=== PATIENT | male | born 1950 | race Caucasian/White ===

== ENCOUNTER 2017-03-01 11:58 | Emergency (ER) | payer MEDICARE ==
[2017-03-01] MEDS ORDERED: Sodium Chloride 0.9% 1000 ML 1,000 ML ONE ×3 (12:05→13:32)
[2017-03-01] MEDS ORDERED: Ativan 2 MG/1 ML VIAL ONE ×2 (12:05→12:27)
[2017-03-01] MEDS ORDERED: Sodium Chloride 0.9% 1000 ML 1,000 ML IV STA (12:06)
[2017-03-01 12:07] LABS: Lactic Acid 14.3 (0.4-2.0); VBG BASE EXCESS -12.8 (-2.0-2.0); VBG CARBOXYHEMOGLOBIN 2.4 % T HGB (0.0-6.9); VBG HCO3- 13.3 meq/L (22-28); VBG HEMOGLOBIN 14.8; VBG O2 SATURATION 92.2 (95-100)
[2017-03-01] MEDS ORDERED: Ativan 2 MG/1 ML VIAL IV ONE ×2 (12:07→12:30)
[2017-03-01 12:08] LABS: Glucose,Critical Care 657 (70-110); VBG pH 7.24 (7.32-7.42)
[2017-03-01 12:13] VITALS: O2SAT 98
[2017-03-01 12:15] LABS: Mean Cell Volume 85.3 fl (78-100); Mean Corpuscular Hemoglobin 29.2 pg (26-32); Mean Platelet Volume 10.7 fl (6-9.5); Platelet Count 422 K/mm3 (150-450); Red Blood Count 4.89 M/mm3 (4.1-5.6); White Blood Count 16.1 K/mm3 (4.0-10.5)
[2017-03-01] MEDS ORDERED: ROCEPHIN 1 Gm-D5w 50 ml Bag** 1 G/50 ML IVPB IV STA (12:15)
[2017-03-01] MEDS ORDERED: ROCEPHIN 1 Gm-D5w 50 ml Bag** 1 G/50 ML IVPB IV ONE (12:19)
[2017-03-01] MEDS ORDERED: Keppra 500 MG/5 ML*** 1,000 MG in D5w 100ML Mini Bag 100 ML 100 ML IV ONE (12:25)
[2017-03-01 12:26] LABS: ADD URINE CULTURE? NO (NO); Bilirubin NEGATIVE (NEGATIVE); Blood NEGATIVE Ery/ul (0-5); COMPLETE URINE MICROSCOPIC? NO; Collection Type CATH; Glucose 1000 mg/dL (NEGATIVE); Leukocyte Esterase NEGATIVE (NEGATIVE)
[2017-03-01 12:27] LABS: INR 0.99 (0.8-3.0)
[2017-03-01 12:29] LABS: PTT 28.6 SECONDS (24.1-36.1)
[2017-03-01 12:34] LABS: ALBUMIN 3.8 g/dL (3.4-5.0); ANION GAP 29.9 MEQ/L (5-15); BILIRUBIN,TOTAL 0.6 mg/dL (0.2-1.0); Potassium 3.9 mEq/L (3.5-5.1); Total Protein 8.2 gm/dL (6.4-8.2)
[2017-03-01 12:43] LABS: MAGNESIUM 1.9 mg/dL (1.8-2.4)
[2017-03-01 12:45] LABS: ETHYL ALCOHOL < 0.010 % (0.00-0.01)
--- NOTE | 2017-03-01 12:47 | XRAY ---
Indication: Hyperglycemia. Seizures. Comparison: None Portable chest underinflated and clear. Heart and mediastinal structures within normal limits. Bony thorax intact. Impression: Nonacute underinflated chest.
--- NOTE | 2017-03-01 12:49 | XRAY ---
Indication: Hyperglycemia. Seizures. Multiple contiguous axial images obtained through the head without contrast. Comparison: None Several images mainly through the base of the brain slightly degraded by motion artifact. Age-appropriate global atrophy. No acute intracranial hemorrhage, abnormal extra axial fluid collection, or mass effect. Fourth ventricle is midline without hydrocephalus. Bony calvarium intact. Visualized paranasal sinuses and mastoid air cells clear. Impression: Minimal motion artifact. No acute intracranial abnormalities. CT DI 59.30
[2017-03-01] MEDS: Sodium Chloride 0.9% 1000 ML 1,000 ML IV SCH ×3 (12:51→13:24)
[2017-03-01 12:59] LABS: Carbon Dioxide 13.8 mEq/L (21-32)
[2017-03-01 13:00] LABS: Platelet Estimate NORMAL (NORMAL); Total Cells Counted 100; Toxic Granulation 1+
--- NOTE | 2017-03-01 13:00 | ERPHSYRPT ---
- History of Present Illness Time Seen by Provider: 03/01/17 12:06 Source: patient, family (brother in law) Patient Subjective Stated Complaint: EMS STAFF CALLED TO [facility] [place] FOR PT HAVING A SEIZURE-UPON ARRIVAL PT SEMI CONSCIOUS-ABLE TO ANSWER QUESTIONS-DIAPHORETIC- DENIES PAIN Triage Nursing Assessment: NO POST ICTAL STATE NOTED-PT ANSWERING QUESTIONS CORRECTLY-NO SIGNS OF QNAPZVSSI-CLAOLSHTKSG-IL HAD SEIZURE ACTIVITY DURING TRIAGE Physician History: CC: confused Hx: 67 y/o patient of Dr Kennedy with hx of HTN and DM. He has not felt well for 2 months, worse in past 2 weeks. No eating much. Lives alone. A friend checked on him today and he seemed to be a little confused and sugar was hi. En route to the hospital his brother in law noted seizure. He has no hx of seizures in the past. He was brought into ER alert but a little confused. Pt reports allergy to PCN- rash. He is oriented mostly. Denies pain. No vomiting or fever. Severity: severe Allergies/Adverse Reactions: penicillin G Allergy (Intermediate, Verified 03/01/17 12:26) Hives Home Medications: Amlodipine Besylate 10 mg [Norvasc 10 MG] 10 mg PO DAILY 03/01/17 [History] Aspirin 81 gm Chew [Baby Aspirin 81 mg Chew] 81 mg PO DAILY 03/01/17 [ History] Gemfibrozil 600 mg [Lopid 600 mg] 600 mg PO BID 03/01/17 [History] Levothyroxine Sodium 50 Mcg [Synthroid 50 Mcg] 50 mcg PO DAILY 03/01/17 [ History] Lisinopril 20 mg [Zestril 20 MG] 40 mg PO DAILY 03/01/17 [History] Metformin HCl [Glucophage] 1,000 mg PO BID 03/01/17 [History] - Review of Systems Constitutional: Malaise, Weakness, No Fever Eyes: No Symptoms Ears, Nose, & Throat: No Symptoms Respiratory: No Cough, No Dyspnea Cardiac: No Chest Pain Abdominal/Gastrointestinal: No Nausea, No Vomiting, No Diarrhea Skin: No Rash Neurological: Seizure (GIVER), No Focal Weakness, No Headache, No Parasthesia All Other Systems: Reviewed and Negative - Past Medical History Pertinent Past Medical History: Yes Cardiac History: High Cholesterol, Hypertension Endocrine Medical History: Diabetes Type II, Hypothyroidism - Social History Smoking Status: Former smoker Patient Lives Alone: Yes (lives alone) - Nursing Vital Signs Nursing Vital Signs: Initial Vital Signs Pulse Rate 111 H 03/01/17 11:59 Respiratory Rate 20 03/01/17 11:59 Blood Pressure 166/70 03/01/17 11:59 O2 Sat by Pulse Oximetry 96 03/01/17 11:59 Pain Scale Pain Intensity 0 - Physical Exam General Appearance: alert (mildly confused) Eye Exam: PERRL/EOMI Ears, Nose, Throat Exam: dry mucous membranes Neck Exam: non-tender, supple Respiratory Exam: normal breath sounds Cardiovascular Exam: regular rate/rhythm Gastrointestinal/Abdomen Exam: soft, No tenderness, No distention, No mass, No guarding Male Genitalia Exam: normal genitalia Extremity Exam: normal inspection, normal range of motion Neurologic Exam: alert, No motor deficits Skin Exam: warm, diaphoresis SpO2 Interpretation: normal SpO2: 98 Oxygen Delivery: Non-rebreather - Course Nursing assessment & vital signs reviewed: Yes EKG Interpreted by Me: RATE (98), Sinus Rhythm, NORMAL AXIS, NORMAL INTERVALS ( QTc 450), Non-specific ST Changes - Radiology Exams cxr X-ray Interpretation: Teleradiologist Report, Negative (underinflated) - CT Exams head CT Interpretation: Negative, Tele-radiologist Report Ordered Tests: Active Orders 24 hr Category Date Time Status Airborne Operations STAT Care 03/01/17 12:07 Active Catheter-Tiverton Suarez STAT Care 03/01/17 12:06 Active EKG-ER Only STAT Care 03/01/17 12:06 Active IV Insertion STAT Care 03/01/17 12:06 Active NPO (ED) STAT Care 03/01/17 12:06 Active Oxygen-ED Only NON-REBREATHER 100% Care 03/01/17 12:08 Active Pulse Oximetry (ED) STAT Care 03/01/17 12:13 Active Rectal Temperature STAT Care 03/01/17 12:07 Active Seizure Precautions -SCCHED STAT Care 03/01/17 12:07 Active CHEST 1 VIEW (PORTABLE) Stat Exams 03/01/17 12:06 Completed HEAD WITHOUT CONTRAST [CT] Stat Exams 03/01/17 12:07 Completed ARTERIAL BLOOD GASES Stat Lab 03/01/17 Ordered BLOOD CULTURE Stat Lab 03/01/17 11:55 Received CBC W DIFF Stat Lab 03/01/17 12:00 Completed CK-Creatinine Phosphokinase Stat Lab 03/01/17 12:00 Completed CMP Stat Lab 03/01/17 12:00 Completed ETHYL ALCOHOL Stat Lab 03/01/17 12:00 Completed Glucose,Critical Care Stat Lab 03/01/17 11:59 Results Glucose,Critical Care Urgent Lab 03/01/17 Ordered Lactic Acid Stat Lab 03/01/17 Ordered Lactic Acid Stat Lab 03/01/17 11:59 Results MAGNESIUM Stat Lab 03/01/17 12:00 Completed Manual Differential NC Stat Lab 03/01/17 12:00 Completed PROTIME WITH INR Stat Lab 03/01/17 12:14 Completed PTT Stat Lab 03/01/17 12:14 Completed TROPONIN Q3H Lab 03/01/17 12:00 Completed TROPONIN Q3H Lab 03/01/17 15:15 Ordered TROPONIN Q3H Lab 03/01/17 18:15 Ordered TROPONIN Q3H Lab 03/01/17 21:15 Ordered TROPONIN Q3H Lab 03/02/17 00:15 Ordered UA W/RFX UR CULTURE Stat Lab 03/01/17 12:06 Completed Urine Triage Profile Stat Lab 03/01/17 12:06 Completed VBG [VENOUS BLOOD GAS] Stat Lab 03/01/17 11:59 Results Medication Summary Generic Name Dose Route Start Last Admin Trade Name Freq PRN Reason Stop Dose Admin Sodium Chloride 1,000 mls @ 999 mls/hr 03/01/17 12:15 03/01/17 12:56 Sodium Chloride 0.9% 1000 Ml IV 03/01/17 16:15 999 mls/hr .Q1H1M MICHELLE Administration Insulin Human Regular 100 101 mls @ 5.05 mls/hr 03/01/17 13:15 units/ Sodium Chloride IV 03/31/17 13:14 .Q20H MICHELLE 5 UNITS/HR Discontinued Medications Generic Name Dose Route Start Last Admin Trade Name Freq PRN Reason Stop Dose Admin Sodium Chloride Confirm 03/01/17 12:05 Sodium Chloride 0.9% 1000 Ml Administered 03/01/17 12:06 Dose 1,000 mls @ ud .ROUTE .STK-MED ONE Sodium Chloride 1,000 mls @ 999 mls/hr 03/01/17 12:06 03/01/17 12:13 Sodium Chloride 0.9% 1000 Ml IV 03/01/17 13:06 999 mls/hr .Q1H1M STA Administration Ceftriaxone Sodium/Dextrose 1 g in 50 mls @ 100 mls/hr 03/01/17 12:15 12:50 Rocephin 1 Gm-D5w 50 Ml Bag IV 03/01/17 12:44 100 mls/hr STAT STA Administration Ceftriaxone Sodium/Dextrose Confirm 03/01/17 12:19 Rocephin 1 Gm-D5w 50 Ml Bag Administered 03/01/17 12:20 Dose 1 g in 50 mls @ ud IV .STK-MED ONE Levetiracetam 1,000 mg/ 110 mls @ 400 mls/hr 03/01/17 12:25 03/01/17 12:34 Dextrose IV 03/01/17 12:41 400 mls/hr STAT ONE Administration Lorazepam Confirm 03/01/17 12:05 Ativan 2 Mg/1 Ml Vial Administered 03/01/17 12:06 Dose 2 mg .ROUTE .STK-MED ONE Lorazepam 1 mg 03/01/17 12:07 03/01/17 12:05 Ativan 2 Mg/1 Ml Vial IV 03/01/17 12:08 1 mg STAT ONE Administration Lorazepam 1 mg 03/01/17 12:30 03/01/17 12:30 Ativan 2 Mg/1 Ml Vial IV 03/01/17 12:31 1 mg STAT ONE Administration Lorazepam Confirm 03/01/17 12:27 Ativan 2 Mg/1 Ml Vial Administered 03/01/17 12:28 Dose 2 mg .ROUTE .STK-MED ONE Lab/Rad Data: Laboratory Result Diagrams 03/01/17 12:00 03/01/17 12:00 Laboratory Results 03/01/17 03/01/17 03/01/17 Range/Units 12:14 12:06 12:06 WBC (4.0-10.5) K/mm3 RBC (4.1-5.6) M/mm3 Hgb (12.5-18.0) gm/dl Hct (42-50) % MCV (78-100) fl MCH (26-32) pg MCHC (32-36) g/dl RDW (11.5-14.0) % Plt Count (150-450) K/mm3 MPV (6-9.5) fl Segmented Neutrophils (36.-66.) % Lymphocytes (Manual) (24-44) % Monocytes (Manual) (0.0-12.0) % Differential Comment Toxic Granulation Platelet Estimate (NORMAL) INR 0.99 (0.8-3.0) APTT 28.6 (24.1-36.1) SECONDS VBG pH (7.32-7.42) VBG pCO2 at Pat Temp (42-55) mm/Hg VBG pO2 at Pat Temp (25-40) mm/Hg VBG HCO3 (22-28) meq/L VBG O2 Sat ([place]) (95-100) VBG Base Excess (-2.0-2.0) VBG Hemoglobin VBG Carboxyhemoglobin (0.0-6.9) % T HGB POC Potassium (3.5-5.1) Glucose (70-110) Sodium (136-145) mEq/L Potassium (3.5-5.1) mEq/L Chloride (98-107) mEq/L Carbon Dioxide (21-32) mEq/L Anion Gap (5-15) MEQ/L BUN (9-20) mg/dL Creatinine (0.55-1.30) mg/dl Estimated GFR ML/MIN Lactic Acid (0.4-2.0) Calcium (8.5-10.1) mg/dL Magnesium (1.8-2.4) mg/dL Total Bilirubin (0.2-1.0) mg/dL AST (15-37) U/L ALT (12-78) U/L Alkaline Phosphatase (46-116) U/L Creatine Kinase (39-308) U/L Troponin I (0.000-0.056) ng/ml Serum Total Protein (6.4-8.2) gm/dL Albumin (3.4-5.0) g/dL Ur Collection Type CATH Urine Color YELLOW (YELLOW) Urine Appearance CLEAR (CLEAR) Urine pH 5.0 (5-6) Ur Specific [place] 1.005 (1.005-1.025) Urine Protein NEGATIVE (Negative) Urine Ketones NEGATIVE (NEGATIVE) Urine Blood NEGATIVE (0-5) [place]/ul Urine Nitrite NEGATIVE (NEGATIVE) Urine Bilirubin NEGATIVE (NEGATIVE) Urine Urobilinogen NORMAL (0-1) mg/dL Ur Leukocyte Esterase NEGATIVE (NEGATIVE) Urine Glucose 1000 (NEGATIVE) mg/dL Urine Opiates Level NEG. (NEGATIVE) Ur Methadone NEG. (NEGATIVE) Urine Barbiturates NEG. (NEGATIVE) Ur Phencyclidine (PCP) NEG. (NEGATIVE) Urine Amphetamine NEG. (NEGATIVE) U Benzodiazepine Level NEG. (NEGATIVE) Urine Cocaine NEG. (NEGATIVE) Urine Marijuana (THC) NEG. (NEGATIVE) Ethyl Alcohol (0.00-0.01) % Specimen Received 03/01/17 1210 03/01/17 03/01/17 03/01/17 Range/Units 12:00 12:00 12:00 WBC (4.0-10.5) K/mm3 RBC (4.1-5.6) M/mm3 Hgb (12.5-18.0) gm/dl Hct (42-50) % MCV (78-100) fl MCH (26-32) pg MCHC (32-36) g/dl RDW (11.5-14.0) % Plt Count (150-450) K/mm3 MPV (6-9.5) fl Segmented Neutrophils (36.-66.) % Lymphocytes (Manual) (24-44) % Monocytes (Manual) (0.0-12.0) % Differential Comment Toxic Granulation Platelet Estimate (NORMAL) INR (0.8-3.0) APTT (24.1-36.1) SECONDS VBG pH (7.32-7.42) VBG pCO2 at Pat Temp (42-55) mm/Hg VBG pO2 at Pat Temp (25-40) mm/Hg VBG HCO3 (22-28) meq/L VBG O2 Sat ([place]) (95-100) VBG Base Excess (-2.0-2.0) VBG Hemoglobin VBG Carboxyhemoglobin (0.0-6.9) % T HGB POC Potassium (3.5-5.1) Glucose 629 H* (70-110) Sodium 131 L (136-145) mEq/L Potassium 3.9 (3.5-5.1) mEq/L Chloride 91 L (98-107) mEq/L Carbon Dioxide 13.8 L* (21-32) mEq/L Anion Gap 29.9 H (5-15) MEQ/L BUN 25 H (9-20) mg/dL Creatinine 1.98 H (0.55-1.30) mg/dl Estimated GFR 36 ML/MIN Lactic Acid (0.4-2.0) Calcium 9.5 (8.5-10.1) mg/dL Magnesium 1.9 (1.8-2.4) mg/dL Total Bilirubin 0.60 (0.2-1.0) mg/dL AST 40 H (15-37) U/L ALT 76 (12-78) U/L Alkaline Phosphatase 132 H (46-116) U/L Creatine Kinase 141 (39-308) U/L Troponin I < 0.017 (0.000-0.056) ng/ml Serum Total Protein 8.2 (6.4-8.2) gm/dL Albumin 3.8 (3.4-5.0) g/dL Ur Collection Type Urine Color (YELLOW) Urine Appearance (CLEAR) Urine pH (5-6) Ur Specific [place] (1.005-1.025) Urine Protein (Negative) Urine Ketones (NEGATIVE) Urine Blood (0-5) [place]/ul Urine Nitrite (NEGATIVE) Urine Bilirubin (NEGATIVE) Urine Urobilinogen (0-1) mg/dL Ur Leukocyte Esterase (NEGATIVE) Urine Glucose (NEGATIVE) mg/dL Urine Opiates Level (NEGATIVE) Ur Methadone (NEGATIVE) Urine Barbiturates (NEGATIVE) Ur Phencyclidine (PCP) (NEGATIVE) Urine Amphetamine (NEGATIVE) U Benzodiazepine Level (NEGATIVE) Urine Cocaine (NEGATIVE) Urine Marijuana (THC) (NEGATIVE) Ethyl Alcohol < 0.010 (0.00-0.01) % Specimen Received 03/01/17 03/01/17 Range/Units 12:00 11:59 WBC 16.1 H (4.0-10.5) K/mm3 RBC 4.89 (4.1-5.6) M/mm3 Hgb 14.3 (12.5-18.0) gm/dl Hct 41.7 L (42-50) % MCV 85.3 (78-100) fl MCH 29.2 (26-32) pg MCHC 34.3 (32-36) g/dl RDW 14.0 (11.5-14.0) % Plt Count 422 (150-450) K/mm3 MPV 10.7 H (6-9.5) fl Segmented Neutrophils 37 (36.-66.) % Lymphocytes (Manual) 60 H (24-44) % Monocytes (Manual) 3 (0.0-12.0) % Differential Comment NORMAL Toxic Granulation 1+ Platelet Estimate NORMAL (NORMAL) INR (0.8-3.0) APTT (24.1-36.1) SECONDS VBG pH 7.24 L* (7.32-7.42) VBG pCO2 at Pat Temp 31 L (42-55) mm/Hg VBG pO2 at Pat Temp 63 H (25-40) mm/Hg VBG HCO3 13.3 L* (22-28) meq/L VBG O2 Sat ([place]) 92.2 L (95-100) VBG Base Excess -12.8 L (-2.0-2.0) VBG Hemoglobin 14.8 VBG Carboxyhemoglobin 2.4 (0.0-6.9) % T HGB POC Potassium 4.0 (3.5-5.1) Glucose 657 H* (70-110) Sodium (136-145) mEq/L Potassium (3.5-5.1) mEq/L Chloride (98-107) mEq/L Carbon Dioxide (21-32) mEq/L Anion Gap (5-15) MEQ/L BUN (9-20) mg/dL Creatinine (0.55-1.30) mg/dl Estimated GFR ML/MIN Lactic Acid 14.3 H (0.4-2.0) Calcium (8.5-10.1) mg/dL Magnesium (1.8-2.4) mg/dL Total Bilirubin (0.2-1.0) mg/dL AST (15-37) U/L ALT (12-78) U/L Alkaline Phosphatase (46-116) U/L Creatine Kinase (39-308) U/L Troponin I (0.000-0.056) ng/ml Serum Total Protein (6.4-8.2) gm/dL Albumin (3.4-5.0) g/dL Ur Collection Type Urine Color (YELLOW) Urine Appearance (CLEAR) Urine pH (5-6) Ur Specific [place] (1.005-1.025) Urine Protein (Negative) Urine Ketones (NEGATIVE) Urine Blood (0-5) [place]/ul Urine Nitrite (NEGATIVE) Urine Bilirubin (NEGATIVE) Urine Urobilinogen (0-1) mg/dL Ur Leukocyte Esterase (NEGATIVE) Urine Glucose (NEGATIVE) mg/dL Urine Opiates Level (NEGATIVE) Ur Methadone (NEGATIVE) Urine Barbiturates (NEGATIVE) Ur Phencyclidine (PCP) (NEGATIVE) Urine Amphetamine (NEGATIVE) U Benzodiazepine Level (NEGATIVE) Urine Cocaine (NEGATIVE) Urine Marijuana (THC) (NEGATIVE) Ethyl Alcohol (0.00-0.01) % Specimen Received - Progress Progress Note: 03/01/17 13:12 Pt had tow more seizure in ER. After returning from CT at 12:42 and he had no movement on left arm, leg and had left facial droop. No injury was reported. He has high blood sugar. No fever. IVF bolus given. Cultures of blood sent. Rocephin given to cover sepsis. Keppra given. Unsure if this is Tood's paralysis post seizure, metabolic induced, or stroke related. CAlled transfer center and spoke to Dr Pereira neurologist who accepts transfer to [facility] ER. Family aware. Condition serious. He is alert, oriented, and follows commands on right. Discussed with : Brent Counseled pt/family regarding: lab results, diagnosis, need for follow-up, rad results - Departure Time of Disposition: 13:17 Departure Disposition: Transfer ([facility] ER) Clinical Impression: Seizure, Hyperglycemia, Shivam's paralysis (postepileptic) Condition: Serious Critical Care Time: Yes Critical Care Time(excluding separately billable procedures): 30-74 minutes Referrals: ZEN KENNEDY [Primary Care Provider] -
[2017-03-01 13:06] LABS: A-aADO2 591; ARTERIAL BLD GAS O2 SATURATION 95.4 % (95-100); ARTERIAL BLOOD GAS BASE EXCESS -10.5 (-2.0-2.0); ARTERIAL BLOOD GAS FIO2 100 %; ARTERIAL BLOOD GAS PO2 78 mmHg (75-100); ARTERIAL BLOOD GAS pH 7.26 (7.35-7.45)
[2017-03-01 13:07] LABS: ALLEN TEST OK? Yes
[2017-03-01] MEDS ORDERED: NOVOLIN R INSULIN (FOR DRIPS)** 100 UNITS in Sodium Chloride 0.9% 100 ML IVPB 100 ML IV SCH (13:15)
[2017-03-01 13:18] VITALS: BP 145/70; PULSE 101
== END 2017-03-01 13:33 | disposition short-term general hospital (02) ==
LOC: ED 11:58
DX: R56.9 Unspecified convulsions (principal); R73.9 Hyperglycemia, unspecified; G83.84 Todd's paralysis (postepileptic); E78.00 Pure hypercholesterolemia, unspecified; I10 Essential (primary) hypertension; E11.9 Type 2 diabetes mellitus without complications; Z79.899 Other long term (current) drug therapy
CPT/HCPCS: 93041; 96374; 96365; 96366; 99285; 36000; 51702; 96360; 96361; 96376; 93005; 87040; 81002; 85610; 85730; 36415; 82550; 83735; 80307; 85025; 80053; 84484; 71010; 70450; 82803; 82375; 36600; 82805; 82947; 94799; 83605; G0481; J0696; J1815; J1953; J2060

== ENCOUNTER 2019-12-13 10:26 | Emergency (ER) | payer MEDICARE, OTHER ==
--- NOTE | 2019-12-13 10:41 | ERPHSYRPT ---
- History of Present Illness Time Seen by Provider: 12/13/19 10:40 Source: patient Exam Limitations: no limitations Physician History: This is a 69-year-old diabetic gentleman with history of hypertension and who is also hypothyroid who presents to the emergency department with complaints of dizziness and a metallic stent. His blood sugar this morning was 375. Patient states that it couple weeks ago patient fell and hit his head and he thinks he had a brief loss of consciousness but he is never had his head evaluated since the injury. Patient denies chest pain and he denies shortness of breath. He denies abdominal pain. His initial blood pressure in the emergency department today was 197/102. Patient denies fever. He denies nausea vomiting diarrhea. Timing/Duration: day(s) (A few days) Severity: mild Associated Symptoms: denies symptoms Allergies/Adverse Reactions: penicillin G Allergy (Intermediate, Verified 12/13/19 10:41) Hives Home Medications: Amlodipine Besylate 10 mg [Norvasc 10 MG] 10 mg PO DAILY 03/01/17 [History] Aspirin 81 gm Chew [Baby Aspirin 81 mg Chew] 81 mg PO DAILY 03/01/17 [History] Gemfibrozil 600 mg [Lopid 600 mg] 600 mg PO BID 03/01/17 [History] Levothyroxine Sodium 50 Mcg [Synthroid 50 Mcg] 50 mcg PO DAILY 03/01/17 [History] Lisinopril 20 mg [Zestril 20 MG] 20 mg PO BID 03/01/17 [History] Metformin HCl [Glucophage] 500 mg PO BID 03/01/17 [History] Metoprolol Succinate 100 mg [Toprol Xl 100 MG] 100 mg DAILY 12/13/19 [History] Travel Risk - International Travel Have you traveled outside of the country in past 3 weeks: No - Coronavirus Screening Are you exhibiting any of the following symptoms?: No Close contact with a COVID-19 positive Pt in past 14-21 Days: No - Review of Systems Constitutional: No Symptoms Eyes: No Symptoms Ears, Nose, & Throat: No Symptoms Respiratory: No Symptoms Cardiac: No Symptoms Abdominal/Gastrointestinal: No Symptoms Genitourinary Symptoms: No Symptoms Musculoskeletal: No Symptoms Skin: No Symptoms Neurological: Dizziness Psychological: No Symptoms Endocrine: No Symptoms Hematologic/Lymphatic: No Symptoms Immunological/Allergic: No Symptoms All Other Systems: Reviewed and Negative - Past Medical History Pertinent Past Medical History: Yes Neurological History: No Pertinent History ENT History: No Pertinent History Cardiac History: High Cholesterol, Hypertension Respiratory History: No Pertinent History Endocrine Medical History: Diabetes Type II, Hypothyroidism Musculoskeletal History: No Pertinent History GI Medical History: No Pertinent History History: No Pertinent History Psycho-Social History: No Pertinent History Male Reproductive Disorders: No Pertinent History - Past Surgical History Neuro Surgical History: No Pertinent History Cardiac: No Pertinent History Respiratory: No Pertinent History Gastrointestinal: No Pertinent History Genitourinary: No Pertinent History Musculoskeletal: No Pertinent History Male Surgical History: No Pertinent History - Social History Smoking Status: Former smoker Patient Lives Alone: Yes (lives alone) - Nursing Vital Signs Nursing Vital Signs: Initial Vital Signs Temperature 98.1 F 12/13/19 10:33 Pulse Rate 108 H 12/13/19 10:33 Respiratory Rate 18 12/13/19 10:33 Blood Pressure 210/102 12/13/19 10:33 O2 Sat by Pulse Oximetry 95 12/13/19 10:33 Pain Scale Pain Intensity 0 - Physical Exam General Appearance: no apparent distress, alert, anxiety Eye Exam: PERRL/EOMI, eyes nml inspection Ears, Nose, Throat Exam: normal ENT inspection, moist mucous membranes Neck Exam: normal inspection, non-tender, supple, full range of motion Respiratory Exam: normal breath sounds, lungs clear, airway intact, No chest tenderness, No respiratory distress Cardiovascular Exam: regular rate/rhythm, normal heart sounds, normal peripheral pulses Gastrointestinal/Abdomen Exam: soft, normal bowel sounds, No tenderness Rectal Exam: not done Back Exam: normal inspection, normal range of motion, No CVA tenderness, No vertebral tenderness Extremity Exam: normal inspection, normal range of motion, pelvis stable Neurologic Exam: alert, oriented x 3, cooperative, hide house supervisor II-XII nml as tested, normal mood/affect, nml cerebellar function, nml station & gait, sensation nml Skin Exam: normal color, warm, dry Lymphatic Exam: No adenopathy SpO2 Interpretation: normal O2 Delivery: Room Air - Course Nursing assessment & vital signs reviewed: Yes Ordered Tests: Active Orders 24 hr Category Date Time Status Mine Motor Engineer STAT Care 12/13/19 10:50 Active IV Insertion STAT Care 12/13/19 10:50 Active HEAD WITHOUT CONTRAST [CT] Stat Exams 12/13/19 11:08 Taken CBC W DIFF Stat Lab 12/13/19 10:45 Completed CMP Stat Lab 12/13/19 10:45 Completed MAGNESIUM Stat Lab 12/13/19 10:45 Completed UA W/RFX UR CULTURE Stat Lab 12/13/19 11:10 Completed Medication Summary Discontinued Medications Generic Name Dose Route Start Last Admin Trade Name Wilian PRN Reason Stop Dose Admin Sodium Chloride 1,000 mls @ 999 mls/hr 12/13/19 10:50 12/13/19 12:33 Sodium Chloride 0.9% 1000 Ml IV 12/13/19 11:50 Infused .Q1H1M STA Infusion Sodium Chloride Confirm 12/13/19 11:13 Sodium Chloride 0.9% 1000 Ml Administered 12/13/19 11:14 Dose 1,000 mls @ ud .ROUTE .STK-MED ONE Insulin Human Regular 4 unit 12/13/19 10:51 12/13/19 11:17 Humulin R IV 12/13/19 10:52 4 unit STAT ONE Administration Insulin Human Regular Confirm 12/13/19 11:18 Humulin R Administered 12/13/19 11:19 Dose 4 unit .ROUTE .STK-MED ONE Metoprolol Tartrate 5 mg 12/13/19 10:50 12/13/19 12:04 Lopressor 5 Mg/5 Ml Injection IV 12/13/19 10:51 5 mg STAT ONE Administration Metoprolol Tartrate Confirm 12/13/19 11:58 Lopressor 5 Mg/5 Ml Injection Administered 12/13/19 11:59 Dose 5 mg IV .STK-MED ONE Metoprolol Tartrate 2.5 mg 12/13/19 12:28 12/13/19 12:43 Lopressor 5 Mg/5 Ml Injection IV 12/13/19 12:29 2.5 mg STAT ONE Administration Metoprolol Tartrate Confirm 12/13/19 12:39 Lopressor 5 Mg/5 Ml Injection Administered 12/13/19 12:40 Dose 5 mg IV .STK-MED ONE Lab/Rad Data: Laboratory Result Diagrams 12/13/19 10:45 12/13/19 10:45 Laboratory Results 12/13/19 12/13/19 12/13/19 Range/Units 11:10 10:45 10:45 WBC 5.7 (4.0-10.5) K/mm3 RBC 4.85 (4.1-5.6) M/mm3 Hgb 14.3 (12.5-18.0) gm/dl Hct 41.1 L (42-50) % MCV 84.7 (78-100) fl MCH 29.5 (26-32) pg MCHC 34.8 (32-36) g/dl RDW 13.4 (11.5-14.0) % Plt Count 249 (150-450) K/mm3 MPV 10.2 (7.5-11.0) fl Gran % 54.3 (36.0-66.0) % Eos # (Auto) 0.05 (0-0.5) Absolute Lymphs (auto) 2.18 (1.0-4.6) Absolute Monos (auto) 0.33 (0.0-1.3) Lymphocytes % 38.3 (24.0-44.0) % Monocytes % 5.8 (0.0-12.0) % Eosinophils % 0.9 (0.00-5.0) % Basophils % 0.7 (0.0-0.4) % Absolute Granulocytes 3.09 (1.4-6.9) Basophils # 0.04 (0-0.4) Sodium 136 L (137-145) mmol/L Potassium 4.2 (3.5-5.1) mmol/L Chloride 104 (98-107) mmol/L Carbon Dioxide 19 L (22-30) mmol/L Anion Gap 16.8 H (5-15) MEQ/L BUN 18 (9-20) mg/dL Creatinine 0.67 (0.66-1.25) mg/dL Estimated GFR > 60.0 ML/MIN Glucose 323 H (74-106) mg/dL Calcium 9.7 (8.4-10.2) mg/dL Magnesium 1.7 (1.6-2.3) mg/dL Total Bilirubin 0.80 (0.2-1.3) mg/dL AST 26 (17-59) U/L ALT 29 (0-50) U/L Alkaline Phosphatase 91 (38-126) U/L Serum Total Protein 8.1 (6.3-8.2) g/dL Albumin 4.7 (3.5-5.0) g/dL Urine Color YELLOW (YELLOW) Urine Appearance CLEAR (CLEAR) Urine pH 5.0 (5-6) Ur Specific [place] 1.024 (1.005-1.025) Urine Protein 100 (Negative) Urine Ketones NEGATIVE (NEGATIVE) Urine Blood NEGATIVE (0-5) [place]/ul Urine Nitrite NEGATIVE (NEGATIVE) Urine Bilirubin NEGATIVE (NEGATIVE) Urine Urobilinogen NEGATIVE (0-1) mg/dL Ur Leukocyte Esterase NEGATIVE (NEGATIVE) Urine WBC (Auto) NONE (0-5) /HPF Urine RBC (Auto) NONE (0-2) /HPF U Epithel Cells (Auto) NONE (FEW) /HPF Urine Bacteria (Auto) NONE (NEGATIVE) /HPF Urine Culture Reflexed NO (NO) Urine Glucose >=500 (NEGATIVE) mg/dL - Progress Progress: improved, re-examined Progress Note: 12/13/19 12:14 CAT scan of the head reveals no acute intracranial abnormality 12/13/19 12:50 Medical decision making: This patient states he is feeling better. Patient does not want to be admitted or transferred into the hospital. His blood sugar is improved after low dose of regular insulin. Patient did take all his blood pressure medications prior to arrival. We will discharge him to home once his blood pressure here in the emergency department is in a reasonable level. His home medications are on board and will be effective and present for several more hours. Patient states his dizziness is improved. He has no chest pain he is not short of breath and he desires to be discharged to home. Counseled pt/family regarding: lab results, diagnosis, need for follow-up, rad results - Departure Departure Disposition: Home Clinical Impression: Hyperglycemia, Hypertensive urgency Condition: Stable Critical Care Time: Yes Critical Care Time(excluding separately billable procedures): Critical 30-74 mins Referrals: ZEN VALLE [Primary Care Provider] - Additional Instructions: Monitor your blood sugar and blood pressure closely. Take your medications as prescribed. Call your primary care physician tomorrow morning to make a rrangements for follow-up appointment.
[2019-12-13] MEDS ORDERED: LOPRESSOR 5 MG/5 ML INJECTION IV ONE ×4 (10:50→12:39)
[2019-12-13] MEDS ORDERED: Sodium Chloride 0.9% 1000 ML 1,000 ML IV STA (10:50)
[2019-12-13] MEDS ORDERED: HUMULIN R IV ONE (10:51)
[2019-12-13 11:04] LABS: Absolute Neutrophil Ct (ANC) 3.09 (1.4-6.9); BASOPHIL % 0.7 % (0.0-0.4); Basophil (Absolute #) 0.04 (0-0.4); Eosinophil % 0.9 % (0.00-5.0); Eosinophil (Absolute #) 0.05 (0-0.5); Hematocrit 41.1 % (42-50); Hemoglobin 14.3 gm/dl (12.5-18.0); Lymphocyte (Absolute #) 2.18 (1.0-4.6); Lymphocytes % 38.3 % (24.0-44.0); Mean Cell Volume 84.7 fl (78-100); Mean Corpuscular Hemoglobin 29.5 pg (26-32); Mean Corpuscular Hgb Concent. 34.8 g/dl (32-36); Mean Platelet Volume 10.2 fl (7.5-11.0); Monocyte (Absolute #) 0.33 (0.0-1.3); Monocytes % 5.8 % (0.0-12.0); Neutrophil % 54.3 % (36.0-66.0); Platelet Count 249 K/mm3 (150-450); Red Blood Count 4.85 M/mm3 (4.1-5.6); Red Cell Distribution Width 13.4 % (11.5-14.0); White Blood Count 5.7 K/mm3 (4.0-10.5)
[2019-12-13] MEDS ORDERED: Sodium Chloride 0.9% 1000 ML 1,000 ML ONE (11:13)
[2019-12-13 11:17] LABS: Appearance CLEAR (CLEAR); Bilirubin NEGATIVE (NEGATIVE); Blood NEGATIVE Ery/ul (0-5); Glucose >=500 mg/dL (NEGATIVE); Ketones NEGATIVE (NEGATIVE); Leukocyte Esterase NEGATIVE (NEGATIVE); Nitrite NEGATIVE (NEGATIVE); Protein,Urine Dip 100 (Negative); Specific Gravity 1.024 (1.005-1.025); Urobilinogen NEGATIVE mg/dL (0-1)
[2019-12-13] MEDS ORDERED: HUMULIN R ONE (11:18)
[2019-12-13 11:21] LABS: ALBUMIN 4.7 g/dL (3.5-5.0); ALKALINE PHOSPHATASE 91 U/L (38-126); ANION GAP 16.8 MEQ/L (5-15); BLOOD UREA NITROGEN 18 mg/dL (9-20); CHLORIDE 104 mmol/L (98-107); Calcium 9.7 mg/dL (8.4-10.2); Carbon Dioxide 19 mmol/L (22-30); Creatinine 1 0.67 mg/dL (0.66-1.25); Glucose 323 mg/dL (74-106); MAGNESIUM 1.7 mg/dL (1.6-2.3); Potassium 4.2 mmol/L (3.5-5.1); SGOT/AST 26 U/L (17-59); SGPT/ALT 29 U/L (0-50); SODIUM 136 mmol/L (137-145); Total Protein 8.1 g/dL (6.3-8.2)
[2019-12-13 13:04] VITALS: BP 156/100; PULSE 82; O2SAT 96
--- NOTE | 2019-12-13 20:00 | XRAY ---
Indication: Dizziness. High blood pressure and high sugar levels. Status post fall 1 week ago. Multiple contiguous axial images obtained through the head without contrast. Comparison: March 01, 2017. Stable age-appropriate global atrophy. Again no acute intracranial hemorrhage, abnormal extra-axial fluid collection, or mass effect. Fourth ventricle is midline without hydrocephalus. Pate-white matter differentiation preserved. Bony calvarium intact. Visualized paranasal sinuses and mastoid air cells are clear. Impression: Continued negative CT head without contrast exam. Comment: Preliminary interpretation was made by [facility]. No critical discrepancy.
== END 2019-12-13 13:13 | disposition home or self-care (01) ==
LOC: ED 10:26
DX: E11.65 Type 2 diabetes mellitus with hyperglycemia (principal); I16.0 Hypertensive urgency; E03.9 Hypothyroidism, unspecified; R42 Dizziness and giddiness; E78.00 Pure hypercholesterolemia, unspecified
CPT/HCPCS: 36415; 70450; 80053; 81001; 82962; 83735; 85025; 93041; 96360; 96374; 96375; 96376; 99284; 99291; J1815

== ENCOUNTER 2021-07-31 14:42 | Emergency (ER) | payer MEDICARE, OTHER ==
[2021-07-31 14:59] VITALS: O2SAT 96
[2021-07-31] MEDS ORDERED: Sodium Chloride 0.9% 1000 ML 1,000 ML IV SCH (15:15)
[2021-07-31 15:26] LABS: Absolute Neutrophil Ct (ANC) 5.17 (1.4-6.9); Basophil (Absolute #) 0.03 (0-0.4); Eosinophil % 1.7 % (0.00-5.0); Eosinophil (Absolute #) 0.15 (0-0.5); Hematocrit 43.2 % (42-50); Hemoglobin 14.8 gm/dl (12.5-18.0); Lymphocyte (Absolute #) 2.84 (1.0-4.6); Lymphocytes % 32.2 % (24.0-44.0); Mean Cell Volume 82.9 fl (78-100); Mean Corpuscular Hemoglobin 28.4 pg (26-32); Mean Corpuscular Hgb Concent. 34.3 g/dl (32-36); Mean Platelet Volume 9.8 fl (7.5-11.0); Monocyte (Absolute #) 0.63 (0.0-1.3); Monocytes % 7.1 % (0.0-12.0); Neutrophil % 58.7 % (36.0-66.0); Platelet Count 221 K/mm3 (150-450); Red Blood Count 5.21 M/mm3 (4.1-5.6); Red Cell Distribution Width 13.7 % (11.5-14.0); White Blood Count 8.8 K/mm3 (4.0-10.5)
[2021-07-31] MEDS ORDERED: Sodium Chloride 0.9% 1000 ML 1,000 ML ONE (15:52)
--- NOTE | 2021-07-31 16:07 | ERPHSYRPT ---
- History of Present Illness Time Seen by Provider: 07/31/21 14:55 Source: patient Exam Limitations: no limitations Patient Subjective Stated Complaint: Pt fell on the ice yesterday and was carrying some pans and thinks that he moved the pans to his left side and landed on them due to having a lot of pain to his left lower ribs, also has pain to his left elbow Triage Nursing Assessment: Pt was brought to the ER by his sister, hypertensive, rates pain as 7/10, left lower front rib area is mis shapened compared to the other side but pt has had extensive abdominal hernia surgery, left elbow pain, denies hitting head or LOC, did knock the air out of lungs and stunned him for a while, pulses normal, skin n/w/d, no bruising noted Physician History: Patient is a 71-year-old male presents to our ED for evaluation of left lower rib and left upper quadrant pain. Patient slipped on ice and fell while carrying pants. Patient states the pants pushed up at the area of his left upper quadrant and left lower ribs. Incident occurred yesterday. Today patient is experiencing pain at this location. Patient concern for fractured ribs. Pain described as an ache that is localized with no radiation. Pain worse with palpation pain improved with rest. No associated chest pain. No nausea vomiting or diaphoresis. Patient voices no other complaints concerns at this time. Of note the fall was mechanical. It was not associated with any sort of neuro or cardiovascular symptomology. Timing/Duration: yesterday Severity: moderate Modifying Factors: Improves With: acetaminophen Associated Symptoms: denies symptoms Allergies/Adverse Reactions: penicillin G Allergy (Intermediate, Verified 07/31/21 14:59) Hives cortisone Allergy (Verified 07/31/21 14:59) Home Medications: Amlodipine Besylate 10 mg [Norvasc 10 MG] 10 mg PO DAILY 03/01/17 [History] Levothyroxine Sodium 50 Mcg [Synthroid 50 Mcg] 50 mcg PO DAILY 03/01/17 [History] Lisinopril 20 mg [Zestril 20 MG] 20 mg PO BID 03/01/17 [History] Metformin HCl [Glucophage] 500 mg PO BID 03/01/17 [History] Glipizide [Glipizide ER] 2.5 mg PO DAILY 07/31/21 [History] Hydralazine HCl 10 mg PO BID 07/31/21 [History] Rosuvastatin Calcium 20 mg PO DAILY 07/31/21 [History] Tamsulosin HCl 0.4 mg [Flomax 0.4 MG] 0.4 mg PO DAILY 07/31/21 [History] carvediloL [Carvedilol] 25 mg PO BID 07/31/21 [History] Hx Influenza Vaccination/Date Given: Yes Hx Pneumococcal Vaccination/Date Given: Yes Travel Risk - International Travel Have you traveled outside of the country in past 3 weeks: No - Coronavirus Screening Are you exhibiting any of the following symptoms?: No Close contact with a COVID-19 positive Pt in past 14-21 Days: No - Vaccine Status Have you recieved a Covid-19 vaccination: Yes Clinical Material Handler: Moderna - Vaccination Dates Date of 2cond Vaccination (if applicable): 09/2020 - Review of Systems Constitutional: No Symptoms, No Fever, No Chills Eyes: No Symptoms Ears, Nose, & Throat: No Symptoms Respiratory: No Symptoms, No Cough, No Dyspnea Cardiac: No Symptoms, No Chest Pain, No Edema, No Syncope Abdominal/Gastrointestinal: No Symptoms, No Abdominal Pain, No Nausea, No Vomiting, No Diarrhea Genitourinary Symptoms: No Symptoms, No Dysuria Musculoskeletal: No Symptoms, No Back Pain, No Neck Pain Skin: No Symptoms, No Rash Neurological: No Symptoms, No Dizziness, No Focal Weakness, No Sensory Changes Psychological: No Symptoms Endocrine: No Symptoms Hematologic/Lymphatic: No Symptoms Immunological/Allergic: No Symptoms All Other Systems: Reviewed and Negative - Past Medical History Pertinent Past Medical History: Yes Neurological History: No Pertinent History ENT History: No Pertinent History Cardiac History: High Cholesterol, Hypertension Respiratory History: No Pertinent History Endocrine Medical History: Diabetes Type II, Hypothyroidism Musculoskeletal History: No Pertinent History GI Medical History: No Pertinent History History: No Pertinent History Psycho-Social History: No Pertinent History Male Reproductive Disorders: No Pertinent History - Past Surgical History Past Surgical History: Yes Neuro Surgical History: No Pertinent History Cardiac: No Pertinent History Respiratory: No Pertinent History Gastrointestinal: Hernia Repair Genitourinary: No Pertinent History Musculoskeletal: No Pertinent History Male Surgical History: No Pertinent History - Social History Smoking Status: Former smoker Exposure to second hand smoke: No Drug Use: none Patient Lives Alone: Yes (lives alone) - Nursing Vital Signs Nursing Vital Signs: Initial Vital Signs Temperature 97.9 F 07/31/21 14:46 Pulse Rate 81 07/31/21 14:46 Blood Pressure 197/99 07/31/21 14:46 O2 Sat by Pulse Oximetry 96 07/31/21 14:46 Pain Scale Pain Intensity 5 - Physical Exam General Appearance: no apparent distress, alert Eye Exam: PERRL/EOMI, eyes nml inspection Ears, Nose, Throat Exam: normal ENT inspection, TMs normal, pharynx normal, moist mucous membranes Neck Exam: normal inspection, non-tender, supple, full range of motion Respiratory Exam: normal breath sounds, lungs clear, airway intact, No respiratory distress Cardiovascular Exam: regular rate/rhythm, normal heart sounds, normal peripheral pulses Gastrointestinal/Abdomen Exam: soft, normal bowel sounds, tenderness, other (Tenderness palpation left upper quadrant and left lower ribs. Overlying soft tissue intact. No ecchymosis. No signs of trauma.), No mass Back Exam: normal inspection, normal range of motion, No CVA tenderness, No vertebral tenderness Extremity Exam: normal inspection, normal range of motion, pelvis stable, other (Left elbow soft tissue intact. Normal active full range of motion. Left upper extremity neurovascular intact distally. Compartments are soft. Cap refill less than 2 seconds. Patient declined x-ray of left elbow as pain has significantly improved in the last 24 hours.) Neurologic Exam: alert, oriented x 3, cooperative, normal mood/affect, nml cerebellar function, nml station & gait, sensation nml, No motor deficits Skin Exam: normal color, warm, dry, No rash Lymphatic Exam: No adenopathy SpO2 Interpretation: normal SpO2: 96 O2 Delivery: Room Air - Course Nursing assessment & vital signs reviewed: Yes - CT Exams Abdomen/Pelvis CT Interpretation: Tele-radiologist Report (No comps. Nothing acute. Small hiatal hernia, bilateral renal cysts, tiny hepatic cyst, tiny gallbladder sludge/gravel, small benign bilateral adrenal adenomas. Colonic diverticulosis. And large bilateral fatty inguinal hernias 1.5 cm intermediate left lower renal mass.) Ordered Tests: Active Orders 24 hr Category Date Time Status IV Insertion STAT Care 07/31/21 15:08 Active Pulse Oximetry (ED) STAT Care 07/31/21 15:08 Active ABDOMEN AND PELVIS W CONTRAST [CT] Stat Exams 07/31/21 16:39 Taken CBC W DIFF Stat Lab 07/31/21 15:21 Completed CMP Stat Lab 07/31/21 15:08 Completed Medication Summary Generic Name Dose Route Start Last Admin Trade Name Wilian PRN Reason Stop Dose Admin Sodium Chloride 1,000 mls @ 100 mls/hr 07/31/21 15:15 07/31/21 15:54 Sodium Chloride 0.9% 1000 Ml IV 08/30/21 15:14 100 mls/hr .Q10H MICHELLE Administration Discontinued Medications Generic Name Dose Route Start Last Admin Trade Name Wilian PRN Reason Stop Dose Admin Acetaminophen 975 mg 07/31/21 17:40 07/31/21 17:47 Acetaminophen 325 Mg Tablet PO 07/31/21 17:41 975 mg STAT ONE Administration Acetaminophen Confirm 07/31/21 17:46 Acetaminophen 325 Mg Tablet Administered 07/31/21 17:47 Dose 975 mg .ROUTE .[employer] ONE Lab/Rad Data: Laboratory Result Diagrams 07/31/21 15:21 07/31/21 15:08 Laboratory Results 07/31/21 07/31/21 Range/Units 15:21 15:08 WBC 8.8 (4.0-10.5) K/mm3 RBC 5.21 (4.1-5.6) M/mm3 Hgb 14.8 (12.5-18.0) gm/dl Hct 43.2 (42-50) % MCV 82.9 (78-100) fl MCH 28.4 (26-32) pg MCHC 34.3 (32-36) g/dl RDW 13.7 (11.5-14.0) % Plt Count 221 (150-450) K/mm3 MPV 9.8 (7.5-11.0) fl Gran % 58.7 (36.0-66.0) % Eos # (Auto) 0.15 (0-0.5) Absolute Lymphs (auto) 2.84 (1.0-4.6) Absolute Monos (auto) 0.63 (0.0-1.3) Lymphocytes % 32.2 (24.0-44.0) % Monocytes % 7.1 (0.0-12.0) % Eosinophils % 1.7 (0.00-5.0) % Basophils % 0.3 (0.0-0.4) % Absolute Granulocytes 5.17 (1.4-6.9) Basophils # 0.03 (0-0.4) Sodium 137 (137-145) mmol/L Potassium 4.3 (3.5-5.1) mmol/L Chloride 100 (98-107) mmol/L Carbon Dioxide 23 (22-30) mmol/L Anion Gap 18.1 H (5-15) MEQ/L BUN 17 (9-20) mg/dL Creatinine 0.71 (0.66-1.25) mg/dL Estimated GFR > 60.0 ML/MIN Glucose 248 H (74-106) mg/dL Calcium 9.8 (8.4-10.2) mg/dL Total Bilirubin 0.80 (0.2-1.3) mg/dL AST 19 (17-59) U/L ALT 20 (0-50) U/L Alkaline Phosphatase 72 (38-126) U/L Serum Total Protein 7.3 (6.3-8.2) g/dL Albumin 4.4 (3.5-5.0) g/dL - Progress Progress: improved Progress Note: Patient declined x-ray of his left elbow. Patient states yesterday his elbow was sore and swollen. The swelling has resolved. The pain is significantly improved. Patient able to move his elbow through full range of motion with essentially no discomfort. Patient declined x-ray at this time 07/31/21 17:40 CAT scan reveals a renal mass that will require follow-up. This was expressed to patient very specifically. Patient understands importance of follow-up. Portions of this note were created with voice recognition technology. There may be grammatical, spelling, punctuation or sound alike errors 07/31/21 18:33 No rib fractures observed on CT scan. Patient has pain at the most inferior margin of the left lower ribs. No rib pain otherwise. 07/31/21 18:35 Pain is well controlled at time of discharge 07/31/21 18:35 Counseled pt/family regarding: lab results, diagnosis, need for follow-up, rad results - Departure Departure Disposition: Home Clinical Impression: Hyperglycemia, Bilateral renal cysts, Tiny hepatic cyst, Tiny gallbladder sludge, Bilateral adrenal adenomas, Colon, diverticulosis, Bilateral fatty inguinal hernias Condition: Stable Critical Care Time: No Referrals: ZEN VALLE [Primary Care Provider] - Follow up/PCP as directed Additional Instructions: Please follow-up with your primary care doctor regarding the left lower renal mass observed on your CAT scan. Discharge/Care Plan STACI WOOD was seen on 07/31/21 in the Emergency Room. The patient was counseled regarding Diagnosis,Lab results, Imaging studies, need for follow up and when to return to the Emergency Room. Prescriptions given: Discharge Note I have spoken with the patient and/or caregivers. I have explained the patient's condition, diagnosis and treatment plan based on the information available to me at this time. I have answered the patient's and/or caregiver's questions and addressed any concerns. The patient and/or caregivers have as good understanding of the patient's diagnosis, condition and treatment plan as can be expected at this point. The vital signs have been stable. The patient's condition is stable and appropriate for discharge from the emergency department. The patient will pursue further outpatient evaluation with the primary care physician or other designated or consulting physician as outlined in the discharge instructions. The patient and/or caregivers are agreeable to this plan of care and follow-up instructions have been explained in detail. The patient and/or caregivers have received these instruction. The patient/and or caregivers are aware that any significant change in condition or worsening of symptoms should prompt an immediate return to this or the closest emergency department or call 911.
[2021-07-31 16:22] LABS: ALBUMIN 4.4 g/dL (3.5-5.0); ALKALINE PHOSPHATASE 72 U/L (38-126); ANION GAP 18.1 MEQ/L (5-15); BLOOD UREA NITROGEN 17 mg/dL (9-20); CHLORIDE 100 mmol/L (98-107); Calcium 9.8 mg/dL (8.4-10.2); Carbon Dioxide 23 mmol/L (22-30); Creatinine 1 0.71 mg/dL (0.66-1.25); EST GLOMERULAR FILTRATION RATE > 60.0 ML/MIN; Glucose 248 mg/dL (74-106); Potassium 4.3 mmol/L (3.5-5.1); SGOT/AST 19 U/L (17-59); SGPT/ALT 20 U/L (0-50); SODIUM 137 mmol/L (137-145); Total Protein 7.3 g/dL (6.3-8.2)
[2021-07-31] MEDS ORDERED: TYLENOL 325 MG PO ONE (17:40)
[2021-07-31 17:43] VITALS: BP 180/96; PULSE 78
[2021-07-31] MEDS ORDERED: TYLENOL 325 MG ONE (17:46)
--- NOTE | 2021-08-01 09:00 | XRAY ---
Indication: Left lower rib pain following fall. Splenic injury. Multiple contiguous axial images obtained through the abdomen and pelvis using 80 cc Isovue 370 contrast. Comparison: None Lung bases demonstrates mild bibasilar subsegmental atelectasis/scarring. Heart not enlarged. Small hiatal hernia. Noncontrasted stomach and bowel loops appear nonobstructed. Normal appendix. Diffuse scattered colonic diverticulosis without diverticulitis. Left lobe liver demonstrates tiny 5 mm cyst versus hemangioma. Gallbladder demonstrates tiny gravel/sludge. Tiny splenic calcified granulomas. No free fluid/air. Both kidneys enhance and excrete with multiple bilateral renal cysts, largest right upper pole measuring 3.5 cm. Left lower pole demonstrates 1.5 cm exophytic mass more dense than cyst concerning for viscus complex cyst versus renal mass. No hydronephrosis or hydroureter. 2 left and one right adrenal adenomas, largest 2.2 cm on the left. Remaining liver, gallbladder, pancreas, spleen, adrenal glands, kidneys, ureters, and bladder are unremarkable. Mild scattered aortoiliac calcifications. No AAA or pathologic retroperitoneal lymphadenopathy. Osseous structures intact with mild/moderate degenerative changes throughout the thoracolumbar spine and both hips. Large bilateral fatty inguinal hernias. Previous ventral hernia repair with intact mesh graft. Impression: 1. 1.5 cm indeterminant left lower renal exophytic mass either complex viscus cyst versus renal mass. Ultrasound may help differentiate. 2. Tiny gallbladder gravel/sludge. Gallbladder sonogram may yield further information if clinically warranted. 3. Small hiatal hernia, colonic diverticulosis, tiny hepatic cyst versus hemangioma, bilateral renal cysts, bilateral adrenal adenomas, large bilateral fatty inguinal hernias, chronic bony findings, and old granulomatous disease.
== END 2021-07-31 18:52 | disposition home or self-care (01) ==
LOC: ED 14:42
DX: N28.1 Cyst of kidney, acquired (principal); K76.89 Other specified diseases of liver; D35.02 Benign neoplasm of left adrenal gland; D35.01 Benign neoplasm of right adrenal gland; K57.30 Diverticulosis of large intestine without perforation or abscess without bleeding; K40.20 Bilateral inguinal hernia, without obstruction or gangrene, not specified as recurrent; N28.89 Other specified disorders of kidney and ureter; E78.5 Hyperlipidemia, unspecified; I10 Essential (primary) hypertension; E11.65 Type 2 diabetes mellitus with hyperglycemia; Z79.84 Long term (current) use of oral hypoglycemic drugs; Z79.899 Other long term (current) drug therapy; R07.81 Pleurodynia; R10.12 Left upper quadrant pain; W00.0XXA Fall on same level due to ice and snow, initial encounter
CPT/HCPCS: 36000; 36415; 74177; 80053; 85025; 94760; 99284; A9270-GY